=== PATIENT | female | born 1950 | race Caucasian/White ===

== ENCOUNTER 2019-06-20 12:20 | Observation (INO) ==
[2019-06-20] MEDS ORDERED: Orphenadrine 60 MG/2 ML VIAL IM ONE (12:29)
[2019-06-20] MEDS ORDERED: Ketorolac 30 MG/ML VIAL IM ONE (12:29)
[2019-06-20] MEDS ORDERED: *HR* HYDROcodone/Acet 5/325 mg TABLET PO ONE (13:32)
[2019-06-20] MEDS ORDERED: Dexamethasone 4 MG/ML VIAL IM ONE (13:32)
[2019-06-20] MEDS ORDERED: Mag Hydrox/Al Hydrox/Simeth 30 ML UDC PO PRN (14:13)
[2019-06-20] MEDS ORDERED: Ibuprofen 600 MG TABLET PO PRN (14:13)
[2019-06-20] MEDS ORDERED: Ondansetron 4 MG/2 ML VIAL IVP PRN (14:13)
[2019-06-20] MEDS ORDERED: Naloxone 0.4 MG/ML INJ IVP PRN (14:13)
[2019-06-20] MEDS ORDERED: MOM Conc 10 ML UD.LIQ PO PRN (14:13)
[2019-06-20 14:41] LABS: Basophils % 0.3 %; Eosinophils # 0.1 K/mcL (0.0-0.6); Eosinophils % 0.6 %; Hematocrit 40.5 % (35.3-44.9); Hemoglobin 13.5 g/dL (11.5-15.4); Immature Granulocytes % 0.7 % (0-4); Lymphocytes # 2.5 K/mcL (0.6-4.6); Lymphocytes % 19.1 %; Mean Corpuscular HGB Conc 33.3 g/dL (31.6-35.5); Mean Corpuscular Hemoglobin 28.6 pg (28.0-33.3); Mean Corpuscular Volume 85.8 fL (83.0-100.0); Mean Platelet Volume 9.7 fL (9.4-12.4); Monocytes # 1.5 K/mcL (0.0-1.3); Monocytes % 11.3 %; Platelet Count 254 K/mcL (140-400); Red Blood Count 4.72 M/mcL (3.82-4.97); Red Cell Distribution Width 13.6 % (11.5-14.5); White Blood Count 13.3 K/mcL (4.3-11.1)
[2019-06-20 15:05] LABS: BUN/Creatinine Ratio 25 (6-26); Blood Urea Nitrogen 23 mg/dL (8-23); Calcium 8.7 mg/dL (8.6-10.3); Carbon Dioxide 27 mEq/L (23-29); Chloride 105 mEq/L (98-107); Glucose 88 mg/dL (70-105); Osmolality,Calculated 293 (280-300); Potassium 4.1 mEq/L (3.5-5.1); Sodium 140 mEq/L (136-145); eGFR For African Americans > 60 (> 60); eGFR For Non-African Americans 60 (> 60)
[2019-06-21 04:54] LABS: Hematocrit 38.1 % (35.3-44.9); Hemoglobin 12.7 g/dL (11.5-15.4); Mean Corpuscular HGB Conc 33.3 g/dL (31.6-35.5); Mean Corpuscular Hemoglobin 28.3 pg (28.0-33.3); Mean Platelet Volume 9.9 fL (9.4-12.4); Platelet Count 273 K/mcL (140-400); Red Blood Count 4.48 M/mcL (3.82-4.97); Red Cell Distribution Width 13.6 % (11.5-14.5)
[2019-06-21] MEDS: *HR* OxyCODONE Immed Rel 5 MG TABLET PO PRN ×3 (07:01→20:53)
[2019-06-21] MEDS: FLUoxetine 20 MG CAPSULE PO SCH (08:56)
[2019-06-21] MEDS: Ketorolac 30 MG/ML VIAL IVP PRN (23:16)
[2019-06-22] MEDS: *HR* OxyCODONE Immed Rel 5 MG TABLET PO PRN (05:09)
[2019-06-22 06:55] VITALS: BP 109/59
[2019-06-22 07:28] LABS: Hematocrit 36.9 % (35.3-44.9); Hemoglobin 12.1 g/dL (11.5-15.4); Mean Corpuscular HGB Conc 32.8 g/dL (31.6-35.5); Mean Corpuscular Hemoglobin 28.5 pg (28.0-33.3); Mean Corpuscular Volume 86.8 fL (83.0-100.0); Mean Platelet Volume 10.4 fL (9.4-12.4); Platelet Count 282 K/mcL (140-400); Red Blood Count 4.25 M/mcL (3.82-4.97); Red Cell Distribution Width 13.8 % (11.5-14.5); White Blood Count 11.4 K/mcL (4.3-11.1)
[2019-06-22 07:45] LABS: BUN/Creatinine Ratio 33 (6-26); Blood Urea Nitrogen 30 mg/dL (8-23); Calcium 8.6 mg/dL (8.6-10.3); Carbon Dioxide 28 mEq/L (23-29); Chloride 105 mEq/L (98-107); Glucose 98 mg/dL (70-105); Osmolality,Calculated 296 (280-300); Potassium 4.5 mEq/L (3.5-5.1); Sodium 140 mEq/L (136-145); eGFR For African Americans > 60 (> 60); eGFR For Non-African Americans > 60 (> 60)
[2019-06-22] MEDS: FLUoxetine 20 MG CAPSULE PO SCH (07:57)
[2019-06-22] MEDS: Ketorolac 30 MG/ML VIAL IVP PRN (08:01)
== END 2019-06-22 11:45 | disposition home or self-care (01) ==
LOC: EMEROOPIK 12:20 → INPPIK 12:20
PROVIDERS: ADMIT Family Medicine; ATTEND Family Medicine

== ENCOUNTER 2020-04-24 17:46 | Inpatient (IN) ==
[2020-04-24] MEDS: Acetaminophen 325 MG TABLET PO PRN (22:22)
[2020-04-24] MEDS: hydrOXYzine pamoate 25 MG CAPSULE PO PRN (22:22)
[2020-04-25 08:04] LABS: Basophils # 0.1 K/mcL (0.0-0.2); Basophils % 0.7 %; Eosinophils # 0.5 K/mcL (0.0-0.6); Eosinophils % 6.4 %; Hemoglobin 12.6 g/dL (11.5-15.4); Immature Granulocytes % 0.3 % (0-4); Lymphocytes % 41.1 %; Mean Corpuscular HGB Conc 33.2 g/dL (31.6-35.5); Mean Corpuscular Volume 84.4 fL (83.0-100.0); Mean Platelet Volume 9.7 fL (9.4-12.4); Monocytes # 0.7 K/mcL (0.0-1.3); Monocytes % 9.3 %; Neutrophils # 3.1 K/mcL (1.6-8.9); Platelet Count 245 K/mcL (140-400); Red Cell Distribution Width 13.4 % (11.5-14.5); Segmented Neutrophils % 42.2 %; White Blood Count 7.3 K/mcL (4.3-11.1)
[2020-04-25 08:56] LABS: BUN/Creatinine Ratio 27 (6-26); Blood Urea Nitrogen 23 mg/dL (8-23); Calcium 8.6 mg/dL (8.6-10.3); Carbon Dioxide 25 mEq/L (23-29); Chloride 107 mEq/L (98-107); Glucose 79 mg/dL (70-105); Osmolality,Calculated 291 (280-300); Potassium 4.1 mEq/L (3.5-5.1); Sodium 139 mEq/L (136-145); eGFR For African Americans > 60 (> 60); eGFR For Non-African Americans > 60 (> 60)
[2020-04-25] MEDS ORDERED: Sennosides/Docusate Sodium TABLET PO PRN (09:46)
[2020-04-25] MEDS: FLUoxetine 20 MG CAPSULE PO SCH (09:48)
[2020-04-25] MEDS: Cyanocobalamin (B-12) 1,000 MCG TABLET PO SCH (09:48)
[2020-04-25] MEDS: Acetaminophen 325 MG TABLET PO PRN (09:50)
[2020-04-25] MEDS: *HR* Acetaminophen w/Cod 300-30 mg 1 TAB TABLET PO PRN ×2 (12:43→20:47)
[2020-04-25] MEDS: hydrOXYzine pamoate 25 MG CAPSULE PO PRN (20:47)
[2020-04-26] MEDS: *HR* Acetaminophen w/Cod 300-30 mg 1 TAB TABLET PO PRN ×3 (05:37→22:57)
[2020-04-26] MEDS: FLUoxetine 20 MG CAPSULE PO SCH (08:03)
[2020-04-26] MEDS: Cyanocobalamin (B-12) 1,000 MCG TABLET PO SCH (08:03)
[2020-04-26] MEDS: hydrOXYzine pamoate 25 MG CAPSULE PO PRN (22:57)
[2020-04-27] MEDS: *HR* Acetaminophen w/Cod 300-30 mg 1 TAB TABLET PO PRN ×2 (08:31→21:37)
[2020-04-27] MEDS: FLUoxetine 20 MG CAPSULE PO SCH (08:31)
[2020-04-27] MEDS: Cyanocobalamin (B-12) 1,000 MCG TABLET PO SCH (08:32)
[2020-04-27] MEDS: hydrOXYzine pamoate 25 MG CAPSULE PO PRN (21:36)
[2020-04-28 06:51] VITALS: BP 110/74
[2020-04-28] MEDS: FLUoxetine 20 MG CAPSULE PO SCH (08:08)
[2020-04-28] MEDS: Cyanocobalamin (B-12) 1,000 MCG TABLET PO SCH (08:09)
[2020-04-28] MEDS: *HR* Acetaminophen w/Cod 300-30 mg 1 TAB TABLET PO PRN (08:11)
[2020-04-28] MEDS ORDERED: Sennosides/Docusate Sodium TABLET PO SCH (08:45)
== END 2020-04-28 15:08 | disposition home or self-care (01) | DRG 945 ==
LOC: INPPIK 21:28
PROVIDERS: ADMIT Family Medicine; ATTEND Family Medicine